=== PATIENT | female | born 1985 | race Caucasian/White ===

== ENCOUNTER 2019-08-17 05:35 | Observation (INO) | payer OTHER ==
[~2019-08-17] VITALS: Ht 157.5 cm; Wt 90.7 kg
[~2019-08-17 05:35] MED LIST: PRENATAL ONE T1 EACH
[2019-08-17] MEDS ORDERED: NPH,100V SQ (06:36)
[2019-08-17] MEDS ORDERED: FOLI0.4T2 PO (06:38)
[2019-08-17] MEDS ORDERED: FERR325T21 PO (06:38)
[2019-08-17 06:49] VITALS: BP 118/63
[2019-08-17] MEDS ORDERED: RINGERS SOLUTION,LACTATED 1,000 ML IV SCH (07:13)
[2019-08-17 08:06] LABS: GLUCOMETER DEV NAME(LOC) 4S.; GLUCOSE,POINT OF CARE 83 MG/DL (70-110)
== END 2019-08-17 12:35 | disposition home or self-care (01) ==
LOC: 4S 05:35
PROVIDERS: ADMIT Obstetrics & Gynecology; ATTEND Obstetrics & Gynecology
DX: O46.93 Antepartum hemorrhage, unspecified, third trimester (principal); O24.419 Gestational diabetes mellitus in pregnancy, unspecified control; Z3A.37 37 weeks gestation of pregnancy
CPT/HCPCS: 76805; 81002; 82962; G0378

== ENCOUNTER 2019-08-17 21:57 | Inpatient (IN) | payer OTHER ==
[~2019-08-17] VITALS: Ht 157.5 cm; Wt 90.7 kg
[~2019-08-17 21:57] MED LIST changes: +FERR325T21 PO; +FOLI0.4T2 PO; +NPH,100V SQ; +OXYTOCIN 30 UNITS/LACT RINGERS 500 ML IV ONE; +RINGERS SOLUTION,LACTATED 1,000 ML IV PRN; +RINGERS SOLUTION,LACTATED 1,000 ML IV SCH
[2019-08-17] MEDS ORDERED: METOCLOPRAMIDE HCL 5 MG/ML 2 ML VIAL IVP PRN (22:00)
[2019-08-17] MEDS ORDERED: LIDOCAINE/PF 1% 30 ML VIAL INJ PRN (22:00)
[2019-08-17] MEDS ORDERED: CITRIC ACID/SODIUM CITRATE 30 ML SOLUTION UDCUP PO PRN (22:00)
[2019-08-17] MEDS ORDERED: FentaNYL CITRATE-PF 100 MCG/2 ML VIAL IVP PRN (22:00)
[2019-08-17 22:16] LABS: GLUCOMETER DEV NAME(LOC) 4S.; GLUCOSE,POINT OF CARE 127 MG/DL (70-110)
[2019-08-17 23:47] VITALS: BP 140/83
[2019-08-18] MEDS ORDERED: RINGERS SOLUTION,LACTATED 1,000 ML IV ONE (00:04)
[2019-08-18] MEDS ORDERED: MEASLES/MUMPS/RUBELLA VACCINE, LIVE 0.5 ML/VIAL SQ ONE (00:15)
[2019-08-18] MEDS ORDERED: GLYCERIN/WITCH HAZEL LEAF 40 PADS JAR TP PRN (00:15)
[2019-08-18] MEDS ORDERED: LANOLIN 7 GM OINTMENT TP PRN (00:15)
[2019-08-18] MEDS ORDERED: BENZOCAINE 20%/MENTHOL 56 GM SPRAY CANISTER TP PRN (00:15)
[2019-08-18] MEDS ORDERED: OxyCODONE HCL/ACETAMINOPHEN 5-325 MG TABLET PO PRN ×2 (00:15)
[2019-08-18] MEDS: IBUPROFEN 600 MG TABLET PO PRN ×3 (01:34→21:19)
[2019-08-18] MEDS ORDERED: OXYGEN THERAPY IH SCH (08:00)
[2019-08-18] MEDS: MAGNESIUM HYDROXIDE SUSPENSION 30 ML UDCUP PO SCH ×2 (08:54→21:19)
[2019-08-18 12:18] LABS: BASOPHILS % (AUTO) 0.4 % (0.0-2.0); EOSINOPHILS % (AUTO) 0.3 % (1.0-6.0); HEMATOCRIT 34.3 % (36-46); HEMOGLOBIN 11.5 g/dL (12.0-16.0); LYMPHOCYTES # (AUTO) 2.1 K/uL (1.0-4.8); LYMPHOCYTES % (AUTO) 14.8 % (22.0-44.0); MEAN CORPUSCULAR HEMOGLOBIN 29.9 pg (26.0-34.0); MEAN CORPUSCULAR HGB CONC 33.6 G/dL (31.0-37.0); MEAN CORPUSCULAR VOLUME 89 fL (80-100); MONOCYTES # (AUTO) 1.2 K/uL (0.1-1.0); MONOCYTES % (AUTO) 8.3 % (2.0-9.0); NEUTROPHILS # (AUTO) 10.7 K/uL (1.8-7.7); NEUTROPHILS % (AUTO) 76.2 % (40.0-70.0); PLATELET COUNT (AUTO)-OB 290 K/uL (150-450); RED BLOOD CELL COUNT(AUTO) 3.86 MIL/uL (4.00-5.20); RED CELL DISTRIBUTION WIDTH 13.8 % (11.5-14.5)
[2019-08-19] MEDS ORDERED: DOCU-275 PO (09:12)
[2019-08-19] MEDS ORDERED: IBUP-2071 PO (09:12)
[2019-08-19] MEDS ORDERED: FERR-89 PO (09:13)
== END 2019-08-19 12:45 | disposition home or self-care (01) | DRG 807 ==
LOC: OBSVTOIN 21:57 → 4S 21:57 → PREOBSVTOIN 09-06 21:50
PROVIDERS: ADMIT Obstetrics & Gynecology; ATTEND Obstetrics & Gynecology
PROC: 10E0XZZ Delivery of Products of Conception, External Approach (ICD-10-PCS; principal; 2019-08-17)
PROC: 0W8NXZZ Division of Female Perineum, External Approach (ICD-10-PCS; 2019-08-17)
DX: O80 Encounter for full-term uncomplicated delivery (principal); Z37.0 Single live birth; Z3A.37 37 weeks gestation of pregnancy
CPT/HCPCS: J2590; J3490; J7120